=== PATIENT | female | born 1985 | race Caucasian/White ===

== ENCOUNTER 2021-09-13 20:04 | Emergency (ER) | payer SELFPAY ==
[~2021-09-13] VITALS: Ht 160 cm; Wt 66.4 kg
[2021-09-13 21:17] LABS: BASO % 1 % (0-3); EOS # 0.1 x10^3/uL (0.0-0.7); EOS % 3 % (0-3); HEMATOCRIT 42.7 % (36.0-47.0); HEMOGLOBIN 14.7 g/dL (12.0-15.5); LYMPH # 2.2 x10^3/uL (1.0-4.8); LYMPH % 50 % (24-48); MEAN CORPUSCULAR HEMOGLOBIN 34 pg (25-35); MEAN CORPUSCULAR HGB CONC 34 g/dL (31-37); MEAN CORPUSCULAR VOLUME 100 fL (79-100); MONO # 0.6 x10^3/uL (0.0-1.1); MONO % 13 % (0-9); NEUT # 1.5 x10^3uL (1.8-7.7); NEUT % 34 % (31-73); PLATELET COUNT 202 x10^3/uL (140-400); RED BLOOD COUNT 4.28 x10^6/uL (3.50-5.40); RED CELL DISTRIBUTION WIDTH 14.4 % (11.5-14.5); WHITE BLOOD COUNT 4.5 x10^3/uL (4.0-11.0)
[2021-09-13 21:25] LABS: CALCIUM 8.1 mg/dL (8.5-10.1); CREATININE 0.8 mg/dL (0.6-1.0); GFR 81.2; POTASSIUM 3.4 mmol/L (3.5-5.1)
[2021-09-13 21:30] LABS: ALBUMIN 3.8 g/dL (3.4-5.0); ALBUMIN/GLOBULIN RATIO 1.1 (1.0-1.7); TOTAL BILIRUBIN 0.3 mg/dL (0.2-1.0); TOTAL PROTEIN 7.3 g/dL (6.4-8.2)
[2021-09-13 21:35] LABS: INFLUENZA A PATIENT NEGATIVE (NEGATIVE); INFLUENZA B PATIENT NEGATIVE (NEGATIVE)
[2021-09-13 21:53] VITALS: BP 111/83
--- NOTE | 2021-09-13 21:56 | PHYS DOC ---
Past History Additional Past Medical Histor: kidney infections (NAA PENDLETON APRN) Past Surgical History: (NAA PENDLETON APRN) Alcohol Use: Occasionally (NAA PENDLETON APRN) Adult General Chief Complaint Chief Complaint: DYSPNEA/RESPIRATOY DISTRESS HPI HPI Patient is a 36-year-old female presents emergency department complaining of cough and congestion for the past 2 weeks, reports large amount of white sputum with her cough, states she is developing anterior lower rib discomfort with each cough, deep breathing, or movement of the upper torso. Otherwise has no pain. Denies fever or chills, denies nasal congestion, states her throat is becoming sore with cough, denies ear pain, denies nausea, vomiting, diarrhea, denies abdominal pains. Patient denies other physical complaints or physical concerns. Patient states she is a cigarette smoker, drinks honey whiskey daily 3-6 shots a day, denies illicit drug use. Patient reports her last menstrual cycle was in 2017 when she had her Mirena IUD placed. (NAA PENDLETON APRN) Review of Systems Review of Systems 14 body systems of review of systems have been reviewed. See HPI for pertinent positives and negative responses, otherwise all other systems are negative, nonpertinent or noncontributory. Constitutional: Negative except as outlined in HPI above. Skin: Negative except as outlined in HPI above. Eyes: Negative except as outlined in HPI above. HENT: Negative except as outlined in HPI above. Respiratory: Negative except as outlined in HPI above. Cardiovascular: Negative except as outlined in HPI above. GI: Negative except as outlined in HPI above. : Negative except as outlined in HPI above. Musculoskeletal: Negative except as outlined in HPI above. Integument: Negative except as outlined in HPI above. Neurologic: Negative except as outlined in HPI above. Endocrine: Negative except as outlined in HPI above. Lymphatic: Negative except as outlined in HPI above. Psychiatric: Negative except as outlined in HPI above. (NAA PENDLETON APRN) Allergies Allergies Allergies Coded Allergies Type Severity Reaction Last Updated Verified No Known Drug Allergies 09/13/21 No (NAA PENDLETON APRN) Physical Exam Physical Exam Constitutional: Well developed, well nourished, no acute distress, non-toxic appearance. 36-year-old female in no apparent distress. HENT: Normocephalic, atraumatic. Eyes: Conjunctiva normal, no discharge. Neck: Normal range of motion, no stridor. Cardiovascular: No cyanosis appreciated, distal cap refill less than 2 seconds. Lungs & Thorax: Patient is in no respiratory distress, no audible adventitious lung sounds appreciated. No adventitious lung sounds appreciated per auscultation, lung sounds clear all lung presley. Abdomen: Nontender, no abnormalities noted. Skin: Warm, dry, no erythema, no rash. Back: No tenderness, no deformities. Extremities: No tenderness, no cyanosis, no clubbing, ROM intact, no edema. Neurologic: Alert and oriented X 3, normal motor function, normal sensory function, no focal deficits noted. Psychologic: Affect normal, judgement normal, mood normal. (NAA PENDLETON APRN) Current Patient Data Vital Signs Vital Signs Date Time Temp Pulse Resp B/P (MAP) Pulse Ox O2 Delivery O2 Flow Rate FiO2 09/13/21 21:00 79 18 108/63 (78) 97 Room Air 09/13/21 20:16 98.1 Lab Results Laboratory Tests Test 09/13/21 20:46 09/13/21 20:58 09/13/21 21:37 Influenza Type A (Rapid) Negative Influenza Type B (Rapid) Negative White Blood Count 4.5 x10^3/uL Red Blood Count 4.28 x10^6/uL Hemoglobin 14.7 g/dL Hematocrit 42.7 % Mean Corpuscular Volume 100 fL Mean Corpuscular Hemoglobin 34 pg Mean Corpuscular Hemoglobin Concent 34 g/dL Red Cell Distribution Width 14.4 % Platelet Count 202 x10^3/uL Neutrophils (%) (Auto) 34 % Lymphocytes (%) (Auto) 50 % Monocytes (%) (Auto) 13 % Eosinophils (%) (Auto) 3 % Basophils (%) (Auto) 1 % Neutrophils # (Auto) 1.5 x10^3uL Lymphocytes # (Auto) 2.2 x10^3/uL Monocytes # (Auto) 0.6 x10^3/uL Eosinophils # (Auto) 0.1 x10^3/uL Basophils # (Auto) 0.0 x10^3/uL D-Dimer (Alannah) < 0.19 mg/L Sodium Level 142 mmol/L Potassium Level 3.4 mmol/L Chloride Level 108 mmol/L Carbon Dioxide Level 23 mmol/L Anion Gap 11 Blood Urea Nitrogen 11 mg/dL Creatinine 0.8 mg/dL Estimated GFR (Cockcroft-Gault) 81.2 BUN/Creatinine Ratio 14 Glucose Level 93 mg/dL Calcium Level 8.1 mg/dL Total Bilirubin 0.3 mg/dL Aspartate Amino Transf (AST/SGOT) 22 U/L Alanine Aminotransferase (ALT/SGPT) 26 U/L Alkaline Phosphatase 60 U/L Total Protein 7.3 g/dL Albumin 3.8 g/dL Albumin/Globulin Ratio 1.1 Bedside Urine HCG, Qualitative hcg negative Laboratory Tests Test 09/13/21 20:46 09/13/21 20:58 09/13/21 21:37 Influenza Type A (Rapid) Negative (NEGATIVE) Influenza Type B (Rapid) Negative (NEGATIVE) White Blood Count 4.5 x10^3/uL (4.0-11.0) Red Blood Count 4.28 x10^6/uL (3.50-5.40) Hemoglobin 14.7 g/dL (12.0-15.5) Hematocrit 42.7 % (36.0-47.0) Mean Corpuscular Volume 100 fL (79-100) Mean Corpuscular Hemoglobin 34 pg (25-35) Mean Corpuscular Hemoglobin Concent 34 g/dL (31-37) Red Cell Distribution Width 14.4 % (11.5-14.5) Platelet Count 202 x10^3/uL (140-400) Neutrophils (%) (Auto) 34 % (31-73) Lymphocytes (%) (Auto) 50 % (24-48) H Monocytes (%) (Auto) 13 % (0-9) H Eosinophils (%) (Auto) 3 % (0-3) Basophils (%) (Auto) 1 % (0-3) Neutrophils # (Auto) 1.5 x10^3uL (1.8-7.7) L Lymphocytes # (Auto) 2.2 x10^3/uL (1.0-4.8) Monocytes # (Auto) 0.6 x10^3/uL (0.0-1.1) Eosinophils # (Auto) 0.1 x10^3/uL (0.0-0.7) Basophils # (Auto) 0.0 x10^3/uL (0.0-0.2) D-Dimer (Alannah) < 0.19 mg/L (0.00-0.50) Sodium Level 142 mmol/L (136-145) Potassium Level 3.4 mmol/L (3.5-5.1) L Chloride Level 108 mmol/L (98-107) H Carbon Dioxide Level 23 mmol/L (21-32) Anion Gap 11 (6-14) Blood Urea Nitrogen 11 mg/dL (7-20) Creatinine 0.8 mg/dL (0.6-1.0) Estimated GFR (Cockcroft-Gault) 81.2 BUN/Creatinine Ratio 14 (6-20) Glucose Level 93 mg/dL (70-99) Calcium Level 8.1 mg/dL (8.5-10.1) L Total Bilirubin 0.3 mg/dL (0.2-1.0) Aspartate Amino Transferase (AST) 22 U/L (15-37) Alanine Aminotransferase (ALT) 26 U/L (14-59) Alkaline Phosphatase 60 U/L (46-116) Total Protein 7.3 g/dL (6.4-8.2) Albumin 3.8 g/dL (3.4-5.0) Albumin/Globulin Ratio 1.1 (1.0-1.7) POC Urine HCG, Qualitative hcg negative (Negative) (NAA PENDLETON APRN) EKG EKG EKG performed 2016 by ED nursing staff shows a normal sinus rhythm with leftward axis deviation otherwise no ectopy appreciated, heart rate 88 bpm, NH interval 0.140, QTc interval 0.432, no acute STEMI, no ACS, no acute ischemia appreciated, EKG interpreted by ED attending physician Dr. Talbot. (NAA PENDLETON APRN) Radiology/Procedures Radiology/Procedures Laboratory Tests Test 09/13/21 20:46 09/13/21 20:58 09/13/21 21:37 Influenza Type A (Rapid) Negative Influenza Type B (Rapid) Negative Group A Streptococcus Rapid Negative White Blood Count 4.5 x10^3/uL Red Blood Count 4.28 x10^6/uL Hemoglobin 14.7 g/dL Hematocrit 42.7 % Mean Corpuscular Volume 100 fL Mean Corpuscular Hemoglobin 34 pg Mean Corpuscular Hemoglobin Concent 34 g/dL Red Cell Distribution Width 14.4 % Platelet Count 202 x10^3/uL Neutrophils (%) (Auto) 34 % Lymphocytes (%) (Auto) 50 % Monocytes (%) (Auto) 13 % Eosinophils (%) (Auto) 3 % Basophils (%) (Auto) 1 % Neutrophils # (Auto) 1.5 x10^3uL Lymphocytes # (Auto) 2.2 x10^3/uL Monocytes # (Auto) 0.6 x10^3/uL Eosinophils # (Auto) 0.1 x10^3/uL Basophils # (Auto) 0.0 x10^3/uL D-Dimer (Alannah) < 0.19 mg/L Sodium Level 142 mmol/L Potassium Level 3.4 mmol/L Chloride Level 108 mmol/L Carbon Dioxide Level 23 mmol/L Anion Gap 11 Blood Urea Nitrogen 11 mg/dL Creatinine 0.8 mg/dL Estimated GFR (Cockcroft-Gault) 81.2 BUN/Creatinine Ratio 14 Glucose Level 93 mg/dL Calcium Level 8.1 mg/dL Total Bilirubin 0.3 mg/dL Aspartate Amino Transf (AST/SGOT) 22 U/L Alanine Aminotransferase (ALT/SGPT) 26 U/L Alkaline Phosphatase 60 U/L Total Protein 7.3 g/dL Albumin 3.8 g/dL Albumin/Globulin Ratio 1.1 Bedside Urine HCG, Qualitative hcg negative PATIENT: ROGELIO RICE AACCOUNT: [id number] : 1985 LOCATION: ER AGE: 36 SEX: F EXAM STATUS: REG ER ORD. PHYSICIAN: NAA PENDLETON APRN REASON: Cough and congestion PROCEDURE: CHEST AP ONLY EXAM: CHEST ONE VIEW. HISTORY: Cough and congestion. COMPARISON: None. FINDINGS: A frontal view of the chest is obtained. There are no confluent infiltrates. There is no pneumothorax or pleural effusion. The heart is not enlarged. IMPRESSION: 1. No confluent infiltrates. Electronically signed by: Gustavo Dolan MD (09/13/2021 9:55 PM) [facility] DICTATED AND SIGNED BY: ZULY DOLAN MD DATE: 09/13/21 215 CC: NAA PENDLETON APRN; PCP,NO ~MTH0 0 (NAA PENDLETON APRN) Heart Score C/O Chest Pain: No Risk Factors: Risk Factors: DM, Current or recent (<one month) smoker, HTN, HLP, family history of CAD, obesity. Risk Scores: Risk Factors: DM, Current or recent (<one month) smoker, HTN, HLP, family history of CAD, obesity. (NAA PENDLETON APRN) Course & Med Decision Making Course & Med Decision Making Pertinent Labs and Imaging studies reviewed. (See chart for details) 36-year-old female, vital signs reviewed, presents emerged from concerning cough and congestion for the past 2 weeks. Physical examination consistent with bronchitis, patient did alert triage nursing staff of chest discomfort, triage nurse performed immediate EKG. the patient denies chest pain or radiation of chest pain, EKG is nonconcerning, cardiac serum enzymes not indicated, will order D-dimer related to patient's smoking history and control history, CBC, CMP, urinalysis assay, test. Patient is not , the patient's urine is not infected, D-dimer is nonconcerning, serum labs CBC and CMP nonconcerning, chest x-ray wet read by ED attending physician Dr. Talbot myself is negative for acute process, will diagnosed with bronchitis, prescribed Augmentin and albuterol MDI related to patient's smoking history, discussed findings, strict follow-up with primary care this week, return ER precautions or concerns, medications and side effects with patient who is amenable to ED discharge planning and gave verbal understanding of discharge planning, Discussed with the patient all findings and diagnostic testing as well as the need to follow-up with their primary care provider for further evaluation and treatment or return to the ED if any new or worsening symptoms. Strict return precautions were also discussed at length, the patient voiced understanding and agreement with the discharge planning. The patient was nontoxic in appearance, in no apparent distress, and hemodynamically stable at the time of disposition. (NAA PENDLETON APRN) Course & Med Decision Making Did not see or evaluate patient. Agree with SALESPERSON [employer]ITURE's work-up and disposition per note. (MONA TALBOT MD) Dragon Disclaimer Dragon Disclaimer This electronic medical record was generated, in whole or in part, using a voice recognition dictation system. (NAA PENDLETON APRN) Departure Departure: Impression: Primary Impression: Bronchitis Disposition: 01 HOME / SELF CARE / HOMELESS Condition: GOOD Referrals: PCP,NO (PCP) Patient Instructions: Acute Bronchitis Additional Instructions: You were seen today in the emergency department for a cough and congestion, and extensive work-up including labs, EKG, chest x-ray was done today in the emergency department, your lab work and EKG and chest x-ray did not show any concerning findings however related to your symptoms as we discussed I am diagnosing you with bronchitis. Because you are a cigarette smoker I am starting you on an antibiotic called azithromycin, please take as directed until complete, I am also prescribing you a albuterol MDI inhaler, please use as directed. Please follow-up with her primary care physician soon, you may consider using the [facility] group located [address] [place] [address] [place] [address], area code [phone], return the emergency department for worsening symptoms or other concerns. Thank you for visiting our Emergency Department. It was a pleasure taking care of you today in the emergency department and we appreciate you trusting us with your care. If any additional problems come up don't hesitate to return to visit us. Please follow up with your primary care provider so they can plan additional care if needed and know about the problem that you had. If symptoms worsen come back to the Emergency Department. Any concerning symptoms that start such as chest pain, shortness of air, weakness or numbness on one side of the body, running high fevers or any other concerning symptoms return to the ER. EMERGENCY DEPARTMENT GENERAL DISCHARGE INSTRUCTIONS Thank you for coming to [facility] (ED) today and trusting us with you care. We trust that you had a positivie experience in our Emergency Department. If you wish to speak to the department management, you may call the director at [phone]. YOUR FOLLOW UP INSTRUCTIONS ARE FOLLOWS: 1. Do you have a private Doctor? If you do not have a private doctor, please ask for a resource list of physicians or clinics that may be able to assist you with follow up care. 2. The Emergency Physician has interpreted your x-rays. The X-Ray specialist will also review them. If there is a change in the findings, you will be notified in 48 hours when at all possible. 3. A lab test or culture has been done, your results will be reviewed and you will be notified if you need a change in treatment. ADDITIONAL INSTRUCTIONS AND INFORMATION: 1. Your care today has been supervised by a physician who is specially trained in emergency care. Many problems require more than one evaluation for a complete diagnosis and treatment. We recommend that you schedule your follow up appointment as recommended to ensure complete treatment of you illness or injury. If you are unable to obtain follow up care and continue to have a problem, or if your condition worsens, we recommend that you return to the ED. 2. We are not able to safely determine your condition over the phone nor are we able to give sound medical advice over the phone. For these safety reasons, if you call for medical advice we will ask you to come to the ED for further evaluation. 3. If you have any questions regarding these discharge instructions please call the ED at [phone]. SAFETY INFORMATION: In the interest of safety, wellness, and injury prevention; we encourage you to wear your sealbelt, if you smoke; quite smoking, and we encourage family to use a protective helmet for bicycling and other sporting events that present an increased risk for head injury. IF YOUR SYMPTOMS WORSEN OR NEW SYMPTOMS DEVELOP, OR YOU HAVE CONCERNS ABOUT YOUR CONDITION; OR IF YOUR CONDITION WORSENS WHILE YOU ARE WAITING FOR YOUR FOLLOW UP APPOINTMENT; EITHER CONTACT YOUR PRIMARY CARE DOCTOR, THE PHYSICIAN WHOSE NAME AND NUMBER YOU WERE GIVEN, OR RETURN TO THE ED IMMEDIATELY. Scripts Albuterol Sulfate (PROAIR HFA INHALER) 8.5 Gm Hfa.aer.ad 2 PUFF IH PRN Q4-6HRS PRN for wheezing for 21 Days, #1 INHALER 0 Refills Prov: NAA PENDLETON APRN 09/13/21 Azithromycin (AZITHROMYCIN TABLET) 250 Mg Tablet 1 PKG PO UD for respiratory infection for 5 Days, #6 TAB 0 Refills 2 the first day followed by 1 for days 2-5 Prov: NAA PENDLETON APRN 09/13/21 NAA PENDLETON APRN Sep 13, 2021 21:56 MONA TALBOT MD Sep 13, 2021 22:16
--- NOTE | 2021-09-13 21:57 | RAD ---
EXAM: CHEST ONE VIEW. HISTORY: Cough and congestion. COMPARISON: None. FINDINGS: A frontal view of the chest is obtained. There are no confluent infiltrates. There is no pneumothorax or pleural effusion. The heart is not en larged. IMPRESSION: 1. No confluent infiltrates. Electronically signed by: Gustavo Dolan MD (09/13/2021 9:55 PM) [facility]
[2021-09-13] MEDS ORDERED: AZIT250T6 PO (22:03)
[2021-09-13] MEDS ORDERED: ALBU2.5V8 IH (22:03)
[2021-09-13 22:11] LABS: BILIRUBIN,URINE NEG (NEG); CLARITY,URINE HAZY; COLOR,URINE YELLOW; GLUCOSE,URINE NEG (NEG); NITRITE,URINE NEG (NEG); UROBILINOGEN,URINE 0.2 mg/dL (0.2 mg/dL)
[2021-09-13 22:12] LABS: BACTERIA,URINE FEW /HPF (0-FEW); RBC,URINE 0 /HPF (0-2); SQUAMOUS EPITHELIAL CELL,UR MOD /LPF
--- NOTE | 2021-09-14 03:42 | EKG ---
[address] [address] Test Date: 2021-09-13 Test Time: 20:17:03 Pat Name: ROGELIO RICE Department: Room: Gender: F [employer] Developer: : 1985 Requested By: NAA PENDLETON Order Number: [id number] Reading MD: Ancelmo Riggins Measurements Intervals [place] Rate: 88 P: 54 DE: 140 QRS: -20 QRSD: 84 T: 40 QT: 354 QTc: 432 Interpretive Statements SINUS RHYTHM LEFTWARD AXIS Electronically Signed On 09-14-2021 12:42:19 CDT by Ancelmo Riggins
== END 2021-09-13 22:20 | disposition home or self-care (01) ==
LOC: ER 20:04
DX: J40 Bronchitis, not specified as acute or chronic (principal); Z20.822 Contact with and (suspected) exposure to COVID-19
CPT/HCPCS: 71045; 80053; 81001; 81025; 85025; 85379; 87070; 87086; 87804; 87880; 93005; 99285; C9803; U0003